=== PATIENT | female | born 1935 | race Caucasian/White ===

== ENCOUNTER 2016-10-07 16:10 | Inpatient (IN) | payer OTHER ==
[~2016-10-07] VITALS: Ht 157.5 cm; Wt 44.7 kg
[~2016-10-07 16:10] MED LIST: ASPIR 8181 M1 PO; DAILY VITAMIN1 EAC4 PO; DILAUDID2 MG PO; ENDOCET 5-3251 EACH PO; MIRALAX17 GM PO; PAROXETINE HCL20 MG PO; PAXIL20 MG PO; PERCOCET 5/31 TABLET PO; PREDNISONE20 MG PO; SIMVASTATIN40 MG PO; TOPAMAX25 MG PO; TOPIRAMATE25 MG PO; TYLENOL REGULA325 MG PO; VALTREX50 MG/ML PO; VICODIN 5-3001 EACH PO
[2016-10-07 17:16] LABS: HEMATOCRIT 44.9 % (36.0-46.0); MCH 30.1 PG (29.0-34.0); MCHC 32.7 G/DL (30.0-36.0); MCV 91.8 FL (83-99); MEAN PLAT.VOLUME 10.1 uM^3 (9.5-12.4); PLATELET COUNT 201 K/uL (156-360); RBC DIS.WIDTH-CV 12.5 % (11.8-14.6); RBC DIS.WIDTH-SD 42.8 % (39-53); RED BLOOD COUNT 4.89 M/uL (3.80-5.20); WHITE BLOOD COUNT 8.3 K/uL (4.1-10.2)
[2016-10-07 17:36] LABS: ADD MIUA? YES; BILIRUBIN NEGATIVE; BLOOD NEGATIVE; COLOR YELLOW ((YELLOW)); GLUCOSE (STRIP) NEGATIVE; KETONES NEGATIVE; LEUKOCYTES SMALL; NITRITE NEGATIVE; PROTEIN (STRIP) NEGATIVE; SPECIFIC GRAVITY 1.018 (1.000-1.030); UROBILINOGEN 0.2 MG/DL (0.2-1.0)
[2016-10-07 17:40] LABS: BACTERIA NONE SEEN /HPF; EPITHELIAL CELLS RARE /HPF; MUCUS TRACE /LPF; RED BLOOD CELLS 0-5 /HPF (0-5); UCUL ADDED? NO; WHITE BLOOD CELLS 0-5 /HPF (0-5)
[2016-10-07 17:43] LABS: CHLORIDE 96 mEq/L (99-109); POTASSIUM 3.9 mEq/L (3.7-5.4); SODIUM 131 mEq/L (136-147)
[2016-10-07 17:45] LABS: GLUCOSE 116 mg/dL (70-99)
[2016-10-07 17:46] LABS: ANION GAP 8 MEQ/L (2-14)
[2016-10-07 17:47] LABS: TOTAL BILIRUBIN 0.8 mg/dL (0.0-1.0)
[2016-10-07 17:48] LABS: ALKALINE PHOSPHATASE 81 IU/L (3-129)
[2016-10-07 17:49] LABS: GFR ESTIMATE (CALCULATED) > 59 mL/min/
[2016-10-07 17:50] LABS: UREA NITROGEN (BUN) 15 mg/dL (9-23)
[2016-10-07 17:52] LABS: LIPASE 8 U/L (1.0-51.0)
[2016-10-07] MEDS ORDERED: OXYCODONE-APAP1 EAC6 PO (23:56)
[2016-10-08] MEDS ORDERED: LYRICA100 MG PO
[2016-10-08] MEDS ORDERED: PANTOPRAZOLE SO40 MG PO (00:01)
[2016-10-08 01:03] VITALS: BP 125/67
[2016-10-08 02:01] LABS: C DIFF TOXIN POSITIVE (NEGATIVE)
[2016-10-08 02:02] LABS: PROBE CHECK PASS
[2016-10-08 06:30] LABS: ANION GAP 8 MEQ/L (2-14); CHLORIDE 104 MEQ/L (99-109); GFR ESTIMATE (CALCULATED) > 59 mL/min/; GLUCOSE 87 mg/dL (70-99); SAMPLE HEMOLYSIS CHECK 0; SAMPLE ICTERIC CHECK 0; SAMPLE LIPEMIA CHECK 0; SODIUM 137 MEQ/L (136-147); UREA NITROGEN (BUN) 9 mg/dL (9-23)
[2016-10-08 06:32] LABS: HEMATOCRIT 33.9 % (36.0-46.0); MCH 30.2 PG (29.0-34.0); MCHC 32.7 G/DL (30.0-36.0); MCV 92.1 FL (83-99); MEAN PLAT.VOLUME 9.3 uM^3 (9.5-12.4); PLATELET COUNT 166 K/uL (156-360); RBC DIS.WIDTH-CV 12.4 % (11.8-14.6); RBC DIS.WIDTH-SD 42.2 % (39-53); WHITE BLOOD COUNT 6.5 K/uL (4.1-10.2)
[2016-10-08 06:37] LABS: RED BLOOD COUNT 3.68 M/uL (3.80-5.20)
[2016-10-08 06:38] LABS: POTASSIUM 3.1 MEQ/L (3.7-5.4)
[2016-10-08 07:44] VITALS: BP 112/56
[2016-10-08 22:49] VITALS: BP 13/56
[2016-10-09 06:49] LABS: HEMATOCRIT 35.1 % (36.0-46.0); MCH 31.1 PG (29.0-34.0); MCV 94.1 FL (83-99); PLATELET COUNT 164 K/uL (156-360); RBC DIS.WIDTH-CV 12.4 % (11.8-14.6); RED BLOOD COUNT 3.73 M/uL (3.80-5.20); WHITE BLOOD COUNT 5.3 K/uL (4.1-10.2)
[2016-10-09 07:09] LABS: ANION GAP 6 MEQ/L (2-14); CHLORIDE 106 MEQ/L (99-109); GFR ESTIMATE (CALCULATED) > 59 mL/min/; GLUCOSE 77 mg/dL (70-99); POTASSIUM 3.6 MEQ/L (3.7-5.4); SAMPLE HEMOLYSIS CHECK 0; SAMPLE ICTERIC CHECK 0; SAMPLE LIPEMIA CHECK 0; SODIUM 139 MEQ/L (136-147); UREA NITROGEN (BUN) 4 mg/dL (9-23)
[2016-10-09 07:50] VITALS: BP 116/60
[2016-10-09 16:09] VITALS: BP 120/71
[2016-10-09 23:07] VITALS: BP 136/70
[2016-10-10 07:11] LABS: EOSINOPHIL (%) 6.1 % (0-5); EOSINOPHIL COUNT 0.3 K/uL (0-0.3); HEMATOCRIT 32.5 % (36.0-46.0); INSTRUMENT ABS NEUTROPHIL CT 2.2 K/uL; LYMPHOCYTE COUNT 1.2 K/uL (1.0-2.8); MCH 31.1 PG (29.0-34.0); MCHC 33.8 G/DL (30.0-36.0); MCV 91.8 FL (83-99); MEAN PLAT.VOLUME 9.8 uM^3 (9.5-12.4); MONOCYTE COUNT 0.4 K/uL (0-0.8); NEUTROPHIL (%) 52.9 % (45-76); NEUTROPHIL COUNT 2.2 K/uL (1.8-6.4); PLATELET COUNT 174 K/uL (156-360); RBC DIS.WIDTH-CV 12.2 % (11.8-14.6); RBC DIS.WIDTH-SD 41.3 % (39-53); RED BLOOD COUNT 3.54 M/uL (3.80-5.20); WHITE BLOOD COUNT 4.1 K/uL (4.1-10.2)
[2016-10-10 07:25] VITALS: BP 112/65
[2016-10-10 07:36] LABS: ALKALINE PHOSPHATASE 56 IU/L (3-129); ANION GAP 6 MEQ/L (2-14); CHLORIDE 107 MEQ/L (99-109); GFR ESTIMATE (CALCULATED) > 59 mL/min/; GLUCOSE 86 mg/dL (70-99); POTASSIUM 3.3 MEQ/L (3.7-5.4); SAMPLE HEMOLYSIS CHECK 0; SAMPLE ICTERIC CHECK 0; SAMPLE LIPEMIA CHECK 0; SODIUM 139 MEQ/L (136-147); TOTAL BILIRUBIN 0.3 MG/DL (0.0-1.0); UREA NITROGEN (BUN) 3 mg/dL (9-23)
[2016-10-10 15:52] VITALS: BP 123/60
[2016-10-11 00:15] VITALS: BP 115/53
[2016-10-11 08:04] VITALS: BP 112/80
[2016-10-11 17:49] VITALS: BP 112/72
[2016-10-11 23:20] VITALS: BP 100/51
[2016-10-12 06:41] LABS: HEMATOCRIT 34.2 % (36.0-46.0); MCHC 33.6 G/DL (30.0-36.0); MCV 92.2 FL (83-99); MEAN PLAT.VOLUME 9.5 uM^3 (9.5-12.4); PLATELET COUNT 216 K/uL (156-360); RBC DIS.WIDTH-CV 12.5 % (11.8-14.6); RBC DIS.WIDTH-SD 42.2 % (39-53); RED BLOOD COUNT 3.71 M/uL (3.80-5.20); WHITE BLOOD COUNT 3.9 K/uL (4.1-10.2)
[2016-10-12 07:04] LABS: ALKALINE PHOSPHATASE 54 IU/L (3-129); ANION GAP 4 MEQ/L (2-14); ANION GAP 5 MEQ/L (2-14); CHLORIDE 107 MEQ/L (99-109); CHLORIDE 108 MEQ/L (99-109); GFR ESTIMATE (CALCULATED) > 59 mL/min/; GLUCOSE 95 mg/dL (70-99); GLUCOSE 96 mg/dL (70-99); POTASSIUM 4.2 MEQ/L (3.7-5.4); SAMPLE HEMOLYSIS CHECK 0; SAMPLE ICTERIC CHECK 0; SAMPLE LIPEMIA CHECK 0; SODIUM 137 MEQ/L (136-147); SODIUM 138 MEQ/L (136-147); TOTAL BILIRUBIN 0.3 MG/DL (0.0-1.0); UREA NITROGEN (BUN) 2 mg/dL (9-23)
[2016-10-12 07:05] LABS: POTASSIUM 4.3 MEQ/L (3.7-5.4)
[2016-10-12 07:10] VITALS: BP 137/67
[2016-10-12 16:11] VITALS: BP 119/67
[2016-10-12 22:50] VITALS: BP 116/64
[2016-10-13 07:46] VITALS: BP 117/58
[2016-10-13 09:07] LABS: HEMATOCRIT 35.9 % (36.0-46.0); MCH 31.7 PG (29.0-34.0); MCHC 34.3 G/DL (30.0-36.0); MCV 92.5 FL (83-99); MEAN PLAT.VOLUME 9.5 uM^3 (9.5-12.4); PLATELET COUNT 216 K/uL (156-360); RBC DIS.WIDTH-CV 12.8 % (11.8-14.6); RBC DIS.WIDTH-SD 42.5 % (39-53); RED BLOOD COUNT 3.88 M/uL (3.80-5.20); WHITE BLOOD COUNT 4.3 K/uL (4.1-10.2)
[2016-10-13 09:58] LABS: ALKALINE PHOSPHATASE 55 IU/L (3-129); ANION GAP 5 MEQ/L (2-14); CHLORIDE 105 MEQ/L (99-109); GFR ESTIMATE (CALCULATED) > 59 mL/min/; GLUCOSE 110 mg/dL (70-99); POTASSIUM 4.6 MEQ/L (3.7-5.4); SAMPLE HEMOLYSIS CHECK 0; SAMPLE ICTERIC CHECK 0; SAMPLE LIPEMIA CHECK 0; SODIUM 137 MEQ/L (136-147); TOTAL BILIRUBIN 0.4 MG/DL (0.0-1.0); UREA NITROGEN (BUN) 2 mg/dL (9-23)
[2016-10-13 16:00] VITALS: BP 105/51
[2016-10-13 22:44] VITALS: BP 108/57
[2016-10-14 05:55] LABS: HEMATOCRIT 32.3 % (36.0-46.0); MCH 31.4 PG (29.0-34.0); MCHC 33.7 G/DL (30.0-36.0); MCV 93.1 FL (83-99); MEAN PLAT.VOLUME 9.6 uM^3 (9.5-12.4); PLATELET COUNT 223 K/uL (156-360); RBC DIS.WIDTH-CV 12.9 % (11.8-14.6); RBC DIS.WIDTH-SD 43.3 % (39-53); RED BLOOD COUNT 3.47 M/uL (3.80-5.20); WHITE BLOOD COUNT 4.2 K/uL (4.1-10.2)
[2016-10-14 06:25] LABS: ALKALINE PHOSPHATASE 48 IU/L (3-129); ANION GAP 7 MEQ/L (2-14); CHLORIDE 106 MEQ/L (99-109); GFR ESTIMATE (CALCULATED) > 59 mL/min/; GLUCOSE 86 mg/dL (70-99); POTASSIUM 4.1 MEQ/L (3.7-5.4); SAMPLE HEMOLYSIS CHECK 0; SAMPLE ICTERIC CHECK 0; SAMPLE LIPEMIA CHECK 0; SODIUM 140 MEQ/L (136-147); TOTAL BILIRUBIN 0.4 MG/DL (0.0-1.0); UREA NITROGEN (BUN) 2 mg/dL (9-23)
[2016-10-14 07:30] VITALS: BP 102/57
[2016-10-14 15:56] VITALS: BP 132/71
[2016-10-14 23:01] VITALS: BP 113/64
[2016-10-15 07:30] VITALS: BP 112/64
[2016-10-15 15:40] VITALS: BP 122/58
[2016-10-15] MEDS ORDERED: SERTRALINE HCL50 MG PO (21:18)
[2016-10-15] MEDS ORDERED: FLORASTOR250 MG PO (21:21)
[2016-10-15] MEDS ORDERED: ZOLPIDEM TARTRAT5 MG PO (21:22)
== END 2016-10-15 22:35 | disposition home or self-care (01) | DRG 372 ==
LOC: EME 16:10 → EDOF 23:26 → 5EAST 23:26 → ENRESERV 23:33 → 5EAST 10-08 01:00
PROVIDERS: Emergency Medicine; Family Medicine; Internal Medicine; Specialist
DX: A04.7 Enterocolitis due to Clostridium difficile (principal); E87.1 Hypo-osmolality and hyponatremia; R63.0 Anorexia; E86.0 Dehydration; E78.5 Hyperlipidemia, unspecified; I10 Essential (primary) hypertension; Z87.81 Personal history of (healed) traumatic fracture; F41.9 Anxiety disorder, unspecified; F32.9 Major depressive disorder, single episode, unspecified; K21.9 Gastro-esophageal reflux disease without esophagitis; E77.8 Other disorders of glycoprotein metabolism; Z63.4 Disappearance and death of family member; Z63.6 Dependent relative needing care at home; Z80.0 Family history of malignant neoplasm of digestive organs; K44.9 Diaphragmatic hernia without obstruction or gangrene; D64.9 Anemia, unspecified; M19.90 Unspecified osteoarthritis, unspecified site; M54.9 Dorsalgia, unspecified; G43.909 Migraine, unspecified, not intractable, without status migrainosus; K57.30 Diverticulosis of large intestine without perforation or abscess without bleeding; F43.21 Adjustment disorder with depressed mood; R63.4 Abnormal weight loss; Z68.1 Body mass index [BMI] 19.9 or less, adult; H53.149 Visual discomfort, unspecified
CPT/HCPCS: 71020; 74177; 80048; 80053; 81003; 83690; 85025; 85027; 87177; 87493; 87506; 93005; 99281; 99285; J0744; J1170; J1650; J2060; J2405; J3030; J3480; J7030; J7040; P9047; S0028; S0030

== ENCOUNTER 2016-11-09 22:09 | Emergency (ER) | payer OTHER ==
[~2016-11-09] VITALS: Ht 157.5 cm; Wt 43.8 kg
[~2016-11-09 22:09] MED LIST changes: +FLORASTOR250 MG PO; +LYRICA100 MG PO; +OXYCODONE-APAP1 EAC6 PO; +PANTOPRAZOLE SO40 MG PO; +SERTRALINE HCL50 MG PO; +ZOLPIDEM TARTRAT5 MG PO
[2016-11-09 22:54] LABS: ADD MIUA? YES; BILIRUBIN NEGATIVE; BLOOD SMALL; COLOR YELLOW ((YELLOW)); GLUCOSE (STRIP) NEGATIVE; KETONES NEGATIVE; LEUKOCYTES TRACE; NITRITE NEGATIVE; PROTEIN (STRIP) NEGATIVE; SPECIFIC GRAVITY 1.017 (1.000-1.030); UROBILINOGEN 0.2 MG/DL (0.2-1.0)
[2016-11-09 23:06] LABS: BASOPHIL COUNT 0.1 K/uL (0-0.1); EOSINOPHIL (%) 8.9 % (0-5); HEMATOCRIT 39.2 % (36.0-46.0); IMMATURE GRANULOCYTE (%) 0.8 % (0.0-0.7); IMMATURE GRANULOCYTE COUNT 0.1 K/uL; INSTRUMENT ABS NEUTROPHIL CT 6.6 K/uL; LYMPHOCYTE COUNT 2.2 K/uL (1.0-2.8); MCH 29.9 PG (29.0-34.0); MCHC 33.7 G/DL (30.0-36.0); MCV 88.7 FL (83-99); MEAN PLAT.VOLUME 9.3 uM^3 (9.5-12.4); MONOCYTE (%) 9.4 % (3-12); NEUTROPHIL (%) 60.5 % (45-76); NEUTROPHIL COUNT 6.6 K/uL (1.8-6.4); PLATELET COUNT 279 K/uL (156-360); RBC DIS.WIDTH-CV 12.2 % (11.8-14.6); RBC DIS.WIDTH-SD 39.9 % (39-53); RED BLOOD COUNT 4.42 M/uL (3.80-5.20); WHITE BLOOD COUNT 10.9 K/uL (4.1-10.2)
[2016-11-09 23:17] LABS: CHLORIDE 101 mEq/L (99-109); SODIUM 138 mEq/L (136-147)
[2016-11-09 23:18] LABS: BACTERIA RARE /HPF; EPITHELIAL CELLS 1+ /HPF; MUCUS 1+ /LPF; UCUL ADDED? YES
[2016-11-09 23:20] LABS: GLUCOSE 82 mg/dL (70-99)
[2016-11-09 23:21] LABS: ANION GAP 13 MEQ/L (2-14); TOTAL BILIRUBIN 0.3 mg/dL (0.0-1.0)
[2016-11-09 23:23] LABS: ALKALINE PHOSPHATASE 86 IU/L (3-129); GFR ESTIMATE (CALCULATED) > 59 mL/min/
[2016-11-09 23:24] LABS: UREA NITROGEN (BUN) 6 mg/dL (9-23)
[2016-11-09 23:27] LABS: LIPASE 52 U/L (1.0-51.0)
[2016-11-09 23:47] LABS: C DIFF TOXIN POSITIVE (NEGATIVE)
[2016-11-09 23:54] LABS: PROBE CHECK PASS
[2016-11-10] MEDS ORDERED: VANCOCIN HCL125 MG PO (00:24)
[2016-11-10 00:42] VITALS: BP 149/75
== END 2016-11-10 00:43 | disposition home or self-care (01) ==
LOC: EME 22:09
PROVIDERS: Emergency Medicine
DX: A04.7 Enterocolitis due to Clostridium difficile (principal); E78.5 Hyperlipidemia, unspecified
CPT/HCPCS: 74177; 80053; 81003; 83690; 85025; 87086; 87493; 87506; 99281; 99285; J7030

== ENCOUNTER 2017-03-15 00:52 | Inpatient (IN) | payer OTHER ==
[~2017-03-15] VITALS: Ht 157.5 cm; Wt 44.2 kg
[~2017-03-15 00:52] MED LIST changes: +VANCOCIN HCL125 MG PO
[2017-03-15 01:43] LABS: HEMATOCRIT 34.4 % (36.0-46.0); MCH 30.1 PG (29.0-34.0); PLATELET COUNT 159 K/uL (156-360); RBC DIS.WIDTH-CV 12.7 % (11.8-14.6); RBC DIS.WIDTH-SD 43.8 % (39-53); RED BLOOD COUNT 3.66 M/uL (3.80-5.20)
[2017-03-15 01:49] LABS: ALBUMIN 2.7 g/dL (3.2-4.8); CHLORIDE 100 mEq/L (99-109); POTASSIUM 3.1 mEq/L (3.7-5.4); SODIUM 133 mEq/L (136-147)
[2017-03-15 01:52] LABS: GLUCOSE 99 mg/dL (70-99); TOTAL PROTEIN 4.8 g/dL (6.4-8.3)
[2017-03-15 01:54] LABS: TOTAL BILIRUBIN 0.8 mg/dL (0.0-1.0)
[2017-03-15 01:55] LABS: ALKALINE PHOSPHATASE 64 IU/L (3-129); CREATININE 1.3 mg/dL (0.6-1.3); GFR ESTIMATE (CALCULATED) 42 mL/min/
[2017-03-15 01:56] LABS: UREA NITROGEN (BUN) 18 mg/dL (9-23)
[2017-03-15 01:57] LABS: AST (GOT) 49 IU/L (2-34)
[2017-03-15 01:58] LABS: ALT (GPT) 24 IU/L (3-49)
[2017-03-15 02:01] LABS: TROP-I INTERPRETATION NEGATIVE; TROPONIN-I 0.01 ng/mL (0.0-0.30)
[2017-03-15 02:27] LABS: BASOPHIL (%) 0 % (0-1); EOSINOPHIL (%) 0 % (0-5); IMMATURE GRANULOCYTE (%) 0.4 % (0.0-0.7); LYMPHOCYTE (%) 9.3 % (15-42); LYMPHOCYTE COUNT 0.7 K/uL (1.0-2.8); MONOCYTE (%) 11.1 % (3-12); MONOCYTE COUNT 0.9 K/uL (0-0.8); NEUTROPHIL (%) 79.2 % (45-76); NEUTROPHIL COUNT 6.3 K/uL (1.8-6.4)
[2017-03-15 02:32] LABS: APPEARANCE CLEAR ((CLEAR)); BILIRUBIN NEGATIVE; BLOOD NEGATIVE; COLOR AMBER ((YELLOW)); GLUCOSE (STRIP) NEGATIVE; KETONES NEGATIVE; LEUKOCYTES NEGATIVE; NITRITE NEGATIVE; PROTEIN (STRIP) NEGATIVE; UCUL ADDED? NO; UROBILINOGEN 0.2 MG/DL (0.2-1.0)
[2017-03-15] MEDS ORDERED: NEXIUM40 MG PO (05:21)
[2017-03-15] MEDS ORDERED: FLAGYL500 MG PO (05:21)
[2017-03-15] MEDS ORDERED: AUGMENTIN500 MG PO (05:21)
[2017-03-15] MEDS ORDERED: DESYREL100 MG PO (05:22)
[2017-03-15 08:11] LABS: C DIFF TOXIN POSITIVE (NEGATIVE)
[2017-03-15] MEDS ORDERED: BENTYL10 MG PO (08:49)
[2017-03-15] MEDS ORDERED: ZOCOR40 MG PO (08:50)
[2017-03-15] MEDS ORDERED: ZOLOFT50 MG PO (08:51)
[2017-03-15] MEDS ORDERED: REQUIP0.25 MG PO (08:55)
[2017-03-15] MEDS ORDERED: NEURONTIN300 MG PO (08:55)
[2017-03-15] MEDS ORDERED: FLORASTOR250 MG PO (08:56)
[2017-03-15 09:12] LABS: HEMATOCRIT 33.4 % (36.0-46.0); HEMOGLOBIN 10.8 G/DL (11.9-15.5); MCH 29.9 PG (29.0-34.0); MCHC 32.3 G/DL (30.0-36.0); MCV 92.5 FL (83-99); PLATELET COUNT 174 K/uL (156-360); RBC DIS.WIDTH-CV 12.8 % (11.8-14.6); RBC DIS.WIDTH-SD 43.6 % (39-53); RED BLOOD COUNT 3.61 M/uL (3.80-5.20)
[2017-03-15 09:20] LABS: CHLORIDE 99 mEq/L (99-109); POTASSIUM 3.2 mEq/L (3.7-5.4); SODIUM 130 mEq/L (136-147)
[2017-03-15 09:21] LABS: GLUCOSE 99 mg/dL (70-99)
[2017-03-15 09:25] LABS: CREATININE 0.9 mg/dL (0.6-1.3); GFR ESTIMATE (CALCULATED) > 59 mL/min/
[2017-03-15 09:26] LABS: UREA NITROGEN (BUN) 18 mg/dL (9-23)
[2017-03-15 13:30] LABS: HDL CHOLESTEROL 43 MG/DL (Desirable>=50); LDL CHOLESTEROL 16 mg/dL (Desirable<100); NON-HDL CHOLESTEROL 26 mg/dL (Desirable<160); TOTAL CHOLESTEROL 69 mg/dL (Desirable<200); TRIGLYCERIDES 48 MG/DL (Normal: <150)
[2017-03-15 14:17] LABS: Estimated Average Glucose 120 mg/dL (70-123); HEMOGLOBIN A1c (GLYCOHEMOGLOB) 5.8 % HGB (Below 5.7)
[2017-03-15 16:34] LABS: INTER. NORMALIZED RATIO 1.8
[2017-03-15 16:36] LABS: PTT 29.1 SEC (25-37)
[2017-03-15 17:23] VITALS: BP 88/51
[2017-03-15 18:00] VITALS: BP 88/51
[2017-03-15 19:51] VITALS: BP 80/42
[2017-03-15 21:27] VITALS: BP 88/48
[2017-03-16 00:16] VITALS: BP 105/54
[2017-03-16 05:32] VITALS: BP 99/54
[2017-03-16 09:00] VITALS: BP 122/80
[2017-03-16 13:03] VITALS: BP 100/66
[2017-03-17 00:17] VITALS: BP 113/55
[2017-03-17 03:55] VITALS: BP 107/62
[2017-03-17 06:19] LABS: BASOPHIL (%) 0.4 % (0-1); EOSINOPHIL (%) 1.7 % (0-5); EOSINOPHIL COUNT 0.2 K/uL (0-0.3); HEMATOCRIT 31.3 % (36.0-46.0); HEMOGLOBIN 10.4 G/DL (11.9-15.5); IMMATURE GRANULOCYTE (%) 1.1 % (0.0-0.7); LYMPHOCYTE (%) 18.5 % (15-42); LYMPHOCYTE COUNT 1.9 K/uL (1.0-2.8); MCH 30.2 PG (29.0-34.0); MCHC 33.2 G/DL (30.0-36.0); MONOCYTE (%) 5.7 % (3-12); MONOCYTE COUNT 0.6 K/uL (0-0.8); NEUTROPHIL (%) 72.6 % (45-76); NEUTROPHIL COUNT 7.3 K/uL (1.8-6.4); PLATELET COUNT 224 K/uL (156-360); RBC DIS.WIDTH-CV 12.7 % (11.8-14.6); RBC DIS.WIDTH-SD 42.5 % (39-53); RED BLOOD COUNT 3.44 M/uL (3.80-5.20); WHITE BLOOD COUNT 10.1 K/uL (4.1-10.2)
[2017-03-17 06:32] LABS: ALBUMIN 2.3 G/DL (3.2-4.8); ALKALINE PHOSPHATASE 63 IU/L (3-129); ALT (GPT) 12 IU/L (3-49); AST (GOT) 16 IU/L (2-34); CHLORIDE 111 MEQ/L (99-109); CREATININE 0.5 MG/DL (0.6-1.3); GFR ESTIMATE (CALCULATED) > 59 mL/min/; GLUCOSE 77 mg/dL (70-99); POTASSIUM 3.7 MEQ/L (3.7-5.4); SODIUM 135 MEQ/L (136-147); TOTAL BILIRUBIN 0.3 MG/DL (0.0-1.0); TOTAL PROTEIN 4.2 G/DL (6.4-8.3); UREA NITROGEN (BUN) 11 mg/dL (9-23)
[2017-03-17 08:22] VITALS: BP 111/60
[2017-03-17 22:25] VITALS: BP 109/58
[2017-03-18 06:36] LABS: INTER. NORMALIZED RATIO 1.1
[2017-03-18 06:50] LABS: HEMATOCRIT 34.4 % (36.0-46.0); MCH 28.9 PG (29.0-34.0); MCV 90.5 FL (83-99); PLATELET COUNT 235 K/uL (156-360); RBC DIS.WIDTH-CV 12.8 % (11.8-14.6); RBC DIS.WIDTH-SD 42.6 % (39-53); WHITE BLOOD COUNT 5.8 K/uL (4.1-10.2)
[2017-03-18 06:51] LABS: CHLORIDE 111 MEQ/L (99-109); CREATININE 0.6 MG/DL (0.6-1.3); GFR ESTIMATE (CALCULATED) > 59 mL/min/; GLUCOSE 77 mg/dL (70-99); IRON 101 MCG/DL (35-150); POTASSIUM 3.5 MEQ/L (3.7-5.4); SODIUM 138 MEQ/L (136-147); UREA NITROGEN (BUN) 6 mg/dL (9-23)
[2017-03-18 08:00] LABS: FERRITIN 132 NG/ML (10-291)
[2017-03-18 08:17] VITALS: BP 137/67
[2017-03-18 08:29] LABS: TRANSFERRIN (TIBC) 106.5 mg/dL (215-380)
[2017-03-18 08:40] LABS: TRANSFERRIN SATUR. 95 % (20-55)
[2017-03-18 16:49] VITALS: BP 110/59
[2017-03-19 00:40] VITALS: BP 123/63
[2017-03-19 04:03] VITALS: BP 127/60
[2017-03-19 06:34] LABS: HEMATOCRIT 32.5 % (36.0-46.0); HEMOGLOBIN 10.4 G/DL (11.9-15.5); MCH 28.7 PG (29.0-34.0); MCV 89.8 FL (83-99); PLATELET COUNT 242 K/uL (156-360); RBC DIS.WIDTH-CV 12.9 % (11.8-14.6); RBC DIS.WIDTH-SD 42.5 % (39-53); RED BLOOD COUNT 3.62 M/uL (3.80-5.20); WHITE BLOOD COUNT 4.7 K/uL (4.1-10.2)
[2017-03-19 06:36] LABS: CHLORIDE 113 MEQ/L (99-109); CREATININE 0.6 MG/DL (0.6-1.3); GFR ESTIMATE (CALCULATED) > 59 mL/min/; GLUCOSE 87 mg/dL (70-99); POTASSIUM 3.1 MEQ/L (3.7-5.4); SODIUM 139 MEQ/L (136-147); UREA NITROGEN (BUN) 4 mg/dL (9-23)
[2017-03-19 06:50] LABS: PLAT.SUFFICIENCY ADEQUATE
[2017-03-19 08:53] VITALS: BP 140/67
[2017-03-19 16:29] VITALS: BP 139/74
[2017-03-19 23:02] VITALS: BP 135/70
[2017-03-20 07:14] LABS: HEMATOCRIT 31.7 % (36.0-46.0); HEMOGLOBIN 10.4 G/DL (11.9-15.5); MCH 29.2 PG (29.0-34.0); MCHC 32.8 G/DL (30.0-36.0); PLATELET COUNT 244 K/uL (156-360); RBC DIS.WIDTH-CV 13.2 % (11.8-14.6); RBC DIS.WIDTH-SD 43.4 % (39-53); RED BLOOD COUNT 3.56 M/uL (3.80-5.20); WHITE BLOOD COUNT 5.4 K/uL (4.1-10.2)
[2017-03-20 07:20] VITALS: BP 141/67
[2017-03-20 07:40] LABS: CHLORIDE 113 MEQ/L (99-109); CREATININE 0.6 MG/DL (0.6-1.3); GFR ESTIMATE (CALCULATED) > 59 mL/min/; GLUCOSE 88 mg/dL (70-99); POTASSIUM 3.6 MEQ/L (3.7-5.4); SODIUM 141 MEQ/L (136-147); UREA NITROGEN (BUN) 4 mg/dL (9-23)
[2017-03-20] MEDS ORDERED: K-DUR20 MEQ PO (11:42)
[2017-03-20] MEDS ORDERED: COMPAZINE10 MG PO (11:43)
[2017-03-20] MEDS ORDERED: Tums,OsCal PO (11:44)
[2017-03-20 15:12] VITALS: BP 140/52
[2017-03-20 23:35] VITALS: BP 133/69
[2017-03-21 07:28] VITALS: BP 142/77
[2017-03-21 16:00] VITALS: BP 140/78
[2017-03-21] MEDS ORDERED: VANCOCIN HCL125 MG PO (17:35)
== END 2017-03-21 18:31 | disposition home health service (06) | DRG 372 ==
LOC: EME → EDBD 00:52 → EDOF 04:01 → 5EAST 04:01 → EDOF 04:16 → ENRESERV 04:19 → EDOF 05:10 → ENRESERV 05:19 → 4EAST 17:06 → ENRESERV 03-16 14:52 → CANRESERV 03-16 14:52 → 4EAST 03-16 16:27 → ENRESERV 03-16 16:32 → 5EAST 03-16 19:40 → ENPENDDIS 03-21 → 5EAST 03-21 18:31
PROVIDERS: Emergency Medicine Emergency Medical Services; Family Medicine; Specialist
DX: A04.71 Enterocolitis due to Clostridium difficile, recurrent (principal); E86.0 Dehydration; E87.2 Acidosis; E78.5 Hyperlipidemia, unspecified; F32.9 Major depressive disorder, single episode, unspecified; K21.9 Gastro-esophageal reflux disease without esophagitis; R64 Cachexia; R55 Syncope and collapse; I11.0 Hypertensive heart disease with heart failure; I50.9 Heart failure, unspecified; F41.9 Anxiety disorder, unspecified; R91.1 Solitary pulmonary nodule; Z91.81 History of falling; M19.90 Unspecified osteoarthritis, unspecified site; K86.2 Cyst of pancreas; G47.00 Insomnia, unspecified; E77.8 Other disorders of glycoprotein metabolism; E87.1 Hypo-osmolality and hyponatremia; E87.6 Hypokalemia; I95.9 Hypotension, unspecified
CPT/HCPCS: 70450; 70551; 71046; 71250; 73521; 80048; 80048 91; 80053; 80061; 81003; 82728; 83036; 83540; 83605; 83880; 84132; 84132 91; 84466; 84484; 85025; 85027; 85610; 85730; 87040; 87493; 93005; 93880; 99202; 99281; 99285; J0696; J2405; J3480; J7040; Q0164; S0030

== ENCOUNTER → 2017-04-01 | Outpatient (CLI) | payer OTHER ==
[~2017-04-01] MED LIST changes: +AUGMENTIN500 MG PO; +BENTYL10 MG PO; +COMPAZINE10 MG PO; +DESYREL100 MG PO; +FLAGYL500 MG PO; +K-DUR20 MEQ PO; +NEURONTIN300 MG PO; +NEXIUM40 MG PO; +REQUIP0.25 MG PO; +Tums,OsCal PO; +ZOCOR40 MG PO; +ZOLOFT50 MG PO
== END | disposition home or self-care (01) ==
LOC: AMB 08:30
PROC: 3E0G7GC Introduction of Other Therapeutic Substance into Upper GI, Via Natural or Artificial Opening (ICD-10-PCS; principal; 2017-04-01)
DX: A04.71 Enterocolitis due to Clostridium difficile, recurrent (principal)
CPT/HCPCS: 71045; G0455

== ENCOUNTER 2017-05-09 09:08 | Inpatient (IN) | payer OTHER ==
[~2017-05-09] VITALS: Ht 157.5 cm; Wt 45.8 kg
[2017-05-09 09:57] LABS: HEMATOCRIT 40.1 % (36.0-46.0); HEMOGLOBIN 13.9 G/DL (11.9-15.5); MCH 31.3 PG (29.0-34.0); MCHC 34.7 G/DL (30.0-36.0); MCV 90.3 FL (83-99); PLATELET COUNT 184 K/uL (156-360); RBC DIS.WIDTH-CV 12.9 % (11.8-14.6); RBC DIS.WIDTH-SD 42.7 % (39-53); RED BLOOD COUNT 4.44 M/uL (3.80-5.20); WHITE BLOOD COUNT 10.1 K/uL (4.1-10.2)
[2017-05-09 10:07] LABS: ALBUMIN 3.8 g/dL (3.2-4.8); CHLORIDE 99 mEq/L (99-109); POTASSIUM 2.7 mEq/L (3.7-5.4); SODIUM 129 mEq/L (136-147)
[2017-05-09 10:10] LABS: GLUCOSE 135 mg/dL (70-99); TOTAL PROTEIN 6.3 g/dL (6.4-8.3)
[2017-05-09 10:12] LABS: TOTAL BILIRUBIN 1.1 mg/dL (0.0-1.0)
[2017-05-09 10:13] LABS: ALKALINE PHOSPHATASE 95 IU/L (3-129); CREATININE 0.8 mg/dL (0.6-1.3); GFR ESTIMATE (CALCULATED) > 59 mL/min/
[2017-05-09 10:14] LABS: UREA NITROGEN (BUN) 19 mg/dL (9-23)
[2017-05-09 10:15] LABS: AST (GOT) 35 IU/L (2-34)
[2017-05-09 10:16] LABS: ALT (GPT) 67 IU/L (3-49)
[2017-05-09 10:17] LABS: LIPASE 4 U/L (1.0-51.0)
[2017-05-09 10:43] LABS: ABS NEUTROPHIL COUNT 7.7; ANISOCYTOSIS 1+; ATYPICAL LYMPHOCYTE 8.7 %; BAND NEUTROPHILS 26.9 % (0-8.0); EOSINOPHIL ABS CT 0; LYMPHOCYTES 0.9 % (15.0-45.0); METAMYELOCYTES 2.6 %; MONOCYTES 11.3 % (0-9.0); PLAT.SUFFICIENCY ADEQUATE; POLYCHROMASIA 1+; SEG.NEUTROPHILS 49.6 % (46.0-76.0)
[2017-05-09 12:35] LABS: C DIFF TOXIN POSITIVE (NEGATIVE)
[2017-05-09] MEDS ORDERED: BUTALB-CAFF-AC1 EACH PO (15:48)
[2017-05-09] MEDS ORDERED: PAXIL20 MG PO (15:48)
[2017-05-09] MEDS ORDERED: ZOFRAN4 MG PO (15:52)
[2017-05-09] MEDS ORDERED: K-DUR20 MEQ PO (15:54)
[2017-05-09] MEDS ORDERED: COMPAZINE10 MG PO (15:55)
[2017-05-09] MEDS ORDERED: BENTYL10 MG PO (15:55)
[2017-05-09] MEDS ORDERED: LIALDA1.2 GM PO (15:56)
[2017-05-09 19:45] VITALS: BP 105/51
[2017-05-09 23:44] VITALS: BP 98/53
[2017-05-10 04:00] VITALS: BP 104/56
[2017-05-10 06:55] LABS: HEMATOCRIT 31.7 % (36.0-46.0); MCH 31.3 PG (29.0-34.0); MCHC 33.4 G/DL (30.0-36.0); MCV 93.5 FL (83-99); PLATELET COUNT 132 K/uL (156-360); RBC DIS.WIDTH-CV 13.3 % (11.8-14.6); RBC DIS.WIDTH-SD 45.6 % (39-53); WHITE BLOOD COUNT 6.2 K/uL (4.1-10.2)
[2017-05-10 06:58] LABS: HEMOGLOBIN 10.6 G/DL (11.9-15.5); RED BLOOD COUNT 3.39 M/uL (3.80-5.20)
[2017-05-10 07:04] VITALS: BP 123/69
[2017-05-10 07:08] LABS: CHLORIDE 111 MEQ/L (99-109); CREATININE 0.6 MG/DL (0.6-1.3); GFR ESTIMATE (CALCULATED) > 59 mL/min/; UREA NITROGEN (BUN) 14 mg/dL (9-23)
[2017-05-10 07:09] LABS: GLUCOSE 100 mg/dL (70-99); POTASSIUM 3.3 MEQ/L (3.7-5.4); SODIUM 138 MEQ/L (136-147)
[2017-05-10 15:50] VITALS: BP 113/57
[2017-05-10 19:50] VITALS: BP 120/60
[2017-05-11 00:03] VITALS: BP 110/60
[2017-05-11 04:18] VITALS: BP 104/58
[2017-05-11 06:13] LABS: HEMATOCRIT 30.3 % (36.0-46.0); HEMOGLOBIN 10.1 G/DL (11.9-15.5); MCHC 33.3 G/DL (30.0-36.0); MCV 92.9 FL (83-99); PLATELET COUNT 147 K/uL (156-360); RBC DIS.WIDTH-CV 13.1 % (11.8-14.6); RBC DIS.WIDTH-SD 44.9 % (39-53); RED BLOOD COUNT 3.26 M/uL (3.80-5.20); WHITE BLOOD COUNT 6.5 K/uL (4.1-10.2)
[2017-05-11 06:32] LABS: CHLORIDE 110 MEQ/L (99-109); CREATININE 0.5 MG/DL (0.6-1.3); GFR ESTIMATE (CALCULATED) > 59 mL/min/; GLUCOSE 84 mg/dL (70-99); POTASSIUM 2.7 MEQ/L (3.7-5.4); SODIUM 140 MEQ/L (136-147); UREA NITROGEN (BUN) 8 mg/dL (9-23)
[2017-05-11 07:12] VITALS: BP 122/61
[2017-05-12 00:07] VITALS: BP 125/60
[2017-05-12 05:33] LABS: HEMATOCRIT 31.2 % (36.0-46.0); HEMOGLOBIN 10.3 G/DL (11.9-15.5); MCH 30.5 PG (29.0-34.0); MCV 92.3 FL (83-99); PLATELET COUNT 170 K/uL (156-360); RBC DIS.WIDTH-CV 13.2 % (11.8-14.6); RBC DIS.WIDTH-SD 44.9 % (39-53); RED BLOOD COUNT 3.38 M/uL (3.80-5.20); WHITE BLOOD COUNT 4.3 K/uL (4.1-10.2)
[2017-05-12 06:02] LABS: CHLORIDE 111 MEQ/L (99-109); CREATININE 0.5 MG/DL (0.6-1.3); GFR ESTIMATE (CALCULATED) > 59 mL/min/; GLUCOSE 76 mg/dL (70-99); SODIUM 139 MEQ/L (136-147); UREA NITROGEN (BUN) 4 mg/dL (9-23)
[2017-05-12 07:54] VITALS: BP 128/81; BP 146/65
[2017-05-12 15:57] VITALS: BP 150/70
[2017-05-13 00:22] VITALS: BP 143/73
[2017-05-13 07:10] VITALS: BP 154/75
[2017-05-13 12:34] LABS: APPEARANCE CLEAR ((CLEAR)); BILIRUBIN NEGATIVE; BLOOD NEGATIVE; COLOR STRAW ((YELLOW)); GLUCOSE (STRIP) NEGATIVE; KETONES 5; LEUKOCYTES NEGATIVE; NITRITE NEGATIVE; PROTEIN (STRIP) NEGATIVE; SPECIFIC GRAVITY 1.005 (1.000-1.030); UCUL ADDED? NO; UROBILINOGEN 0.2 MG/DL (0.2-1.0)
[2017-05-13 15:20] VITALS: BP 154/77
[2017-05-13 19:49] VITALS: BP 116/66
[2017-05-13 23:50] VITALS: BP 159/77
[2017-05-14 07:28] VITALS: BP 156/75
[2017-05-14 16:16] VITALS: BP 160/92
== END 2017-05-14 17:53 | disposition home health service (06) | DRG 372 ==
LOC: EME 09:08 → 5EAST 14:17 → EDOF 14:17 → 5EAST 14:17 → ENRESERV 14:18 → EDOF 14:24 → ENRESERV 16:02 → 5EAST 19:09
PROVIDERS: Emergency Medicine; Family Medicine; Internal Medicine
DX: A04.71 Enterocolitis due to Clostridium difficile, recurrent (principal); E87.1 Hypo-osmolality and hyponatremia; E86.0 Dehydration; E87.2 Acidosis; I95.9 Hypotension, unspecified; E87.6 Hypokalemia; I10 Essential (primary) hypertension; E78.5 Hyperlipidemia, unspecified; K21.9 Gastro-esophageal reflux disease without esophagitis; G25.81 Restless legs syndrome; F32.9 Major depressive disorder, single episode, unspecified; F41.9 Anxiety disorder, unspecified; G43.909 Migraine, unspecified, not intractable, without status migrainosus; R29.6 Repeated falls; Z87.440 Personal history of urinary (tract) infections; Z91.81 History of falling; Z90.710 Acquired absence of both cervix and uterus; Z79.82 Long term (current) use of aspirin
CPT/HCPCS: 74177; 80048; 80053; 81003; 82948; 83605; 83690; 84132; 85025; 85027; 87045; 87046; 87493; 87506; 99281; 99285; J1644; J2270; J2405; J3480; J7030; J7040; J7042; S0030

== ENCOUNTER → 2017-07-02 | Outpatient (CLI) | payer OTHER ==
[~2017-07-02] MED LIST changes: +BUTALB-CAFF-AC1 EACH PO; +LIALDA1.2 GM PO; +ZOFRAN4 MG PO
== END | disposition home or self-care (01) ==
LOC: AMB 08:00 → SDS 08:00 → EDSTATUS 08:00 → AMB 08:24 → RAD 07-03 09:00
DX: A04.71 Enterocolitis due to Clostridium difficile, recurrent (principal); K44.9 Diaphragmatic hernia without obstruction or gangrene; R30.0 Dysuria; R11.0 Nausea; E78.5 Hyperlipidemia, unspecified; Z79.82 Long term (current) use of aspirin; Z80.0 Family history of malignant neoplasm of digestive organs; Z83.3 Family history of diabetes mellitus; Z82.0 Family history of epilepsy and other diseases of the nervous system
CPT/HCPCS: 76000; 99212; G0455